=== PATIENT | male | born 1990 | race Caucasian/White ===

== ENCOUNTER 2019-04-06 08:13 | Emergency (ER) | payer SELFPAY ==
[2019-04-06] MEDS ORDERED: ASPIRIN 325 MG TAB PO ONE (08:21)
--- NOTE | 2019-04-06 08:55 | XRay Report ---
CHEST 1 VIEW INDICATION: MAIN: Chest Pain STARTING 2 HOURS AGO . COMPARISON: None FINDINGS: Support devices: None. Heart: Within normal limits. Lungs/Pleura: No acute air space or interstitial disease. Additional findings: None. IMPRESSION: 1. No acute findings. Signer Name: Jorge Powers MD Signed: 04/06/2019 8:50 AM Workstation Name: [id number]
--- NOTE | 2019-04-06 09:02 | Emergency Department Report ---
ED General Adult HPI - General Chief complaint: Chest Pain Stated complaint: PAIN IN (L) SHOULDER Time Seen by Provider: 04/06/19 08:54 Source: patient Mode of arrival: Ambulatory Limitations: No Limitations - History of Present Illness Initial comments: 28-year-old male presents to the emergency room stating he's having pain to his left shoulder that radiates down his arm. Patient states that he overdosed on crystal meth one hour prior to arrival. Patient states he feels nausea but no vomiting and feels confused. Patient denies any suicidal or homicidal ideation. Patient admits that he took a double dose of crystal meth this morning. Patient denies any falls or injuries. Patient denies any shortness of breath any sweating. -: This morning Location: left, upper extremity Radiation: extremity, distal (left arm) Quality: sharp Consistency: constant Associated Symptoms: cough. denies: diaphoresis, fever/chills, headaches, loss of appetite, nausea/vomiting, rash, shortness of breath, syncope, weakness Treatments Prior to Arrival: none - Related Data Allergies Allergy/AdvReac Type Severity Reaction Status Date / Time No Known Allergies Allergy Unverified 04/06/19 08:21 ED Review of Systems ROS: Stated complaint: PAIN IN (L) SHOULDER Other details as noted in HPI Comment: All other systems reviewed and negative ED Past Medical Hx - Past Medical History Previous Medical History?: No - Surgical History Past Surgical History?: No - Social History Smoking Status: Never Smoker Substance Use Type: Methamphetamines ED Physical Exam - General Limitations: No Limitations General appearance: alert, in no apparent distress - Head Head exam: Present: atraumatic, normocephalic - Eye Eye exam: Present: normal appearance - ENT ENT exam: Present: mucous membranes moist - Neck Neck exam: Present: normal inspection - Respiratory Respiratory exam: Present: normal lung sounds bilaterally. Absent: respiratory distress - Cardiovascular Cardiovascular Exam: Present: regular rate, normal rhythm. Absent: systolic murmur, diastolic murmur, rubs, gallop - GI/Abdominal GI/Abdominal exam: Present: soft, normal bowel sounds - Rectal Rectal exam: Present: deferred - Extremities Exam Extremities exam: Present: normal inspection - Back Exam Back exam: Present: normal inspection - Neurological Exam Neurological exam: Present: alert, oriented X3 - Psychiatric Psychiatric exam: Present: normal affect, normal mood - Skin Skin exam: Present: warm, dry, intact, normal color. Absent: rash ED Course Vital Signs 04/06/19 04/06/19 04/06/19 08:18 08:26 10:39 Temperature 98.1 F Pulse Rate 81 99 H Respiratory 16 24 16 Rate Blood Pressure 143/104 144/98 [Left] O2 Sat by Pulse 98 100 Oximetry 04/06/19 04/06/19 04/06/19 12:00 13:46 14:53 Temperature 98.4 F Pulse Rate 91 H 67 Respiratory 14 16 Rate Blood Pressure 135/91 148/95 147/97 [Left] O2 Sat by Pulse 100 Oximetry ED Medical Decision Making - Lab Data Result diagrams: 04/06/19 08:54 04/06/19 08:54 - Radiology Data Radiology results: report reviewed Patient: JAREK STONE MR#: [id number] : 1990 Acct:[id number] Age/Sex: 28 / M ADM Date: 04/06/19 Loc: ED Attending Dr: Ordering Physician: KELLY SHEIKH MD Date of Service: 04/06/19 Procedure(s): XR chest 1V ap Accession Number(s): [id number] cc: KELLY SHEIKH MD Fluoro Time In Minutes: CHEST 1 VIEW INDICATION: MAIN: Chest Pain STARTING 2 HOURS AGO . COMPARISON: None FINDINGS: Support devices: None. Heart: Within normal limits. Lungs/Pleura: No acute air space or interstitial disease. Additional findings: None. IMPRESSION: 1. No acute findings. Signer Name: Jorge Powers MD Signed: 04/06/2019 8:50 AM Workstation Name: [id number] Transcribed By: JW Dictated By: Jorge Powers MD Electronically Authenticated By: Jorge Powers MD Signed Date/Time: 04/06/1950 DD/ TD/TT: - Medical Decision Making 28-year-old male presents to the emergency room stating he's having pain to his left shoulder that radiates down his arm. Patient states that he overdosed on crystal meth one hour prior to arrival. Patient states he feels nausea but no vomiting and feels confused. Patient denies any suicidal or homicidal ideation. Patient admits that he took a double dose of crystal meth this morning. Patient denies any falls or injuries. Patient denies any shortness of breath any sweating. Toxicology and basic labs ordered. CK is within normal limits. Patient be discharged with a referral to rehabilitation. Critical care attestation.: If time is entered above; I have spent that time in minutes in the direct care of this critically ill patient, excluding procedure time. ED Disposition Clinical Impression: Amphetamine abuse, continuous Disposition: DC-01 TO HOME OR SELFCARE Is pt being admited?: No Does the pt Need Aspirin: No Condition: Stable Instructions: Methamphetamine Abuse (ED) Referrals: PRIMARY CARE, [Primary Care Provider] - 3-5 Days [facility] [Outside] - 3-5 Days [facility] [Outside] - 3-5 Days
[2019-04-06 09:15] LABS: Basophils # (Auto) 0.1 K/mm3 (0.0-0.1); Basophils % (Auto) 1.2 % (0.0-1.8); Eosinophils # (Auto) 0.1 K/mm3 (0.0-0.4); Eosinophils % (Auto) 1.4 % (0.0-4.3); Hemoglobin 16.7 gm/dl (11.8-15.2); Lymphocytes # (Auto) 1.3 K/mm3 (1.2-5.4); Lymphocytes % (Auto) 17.5 % (13.4-35.0); Mean Corpuscular HGB Conc 33 % (32-34); Mean Corpuscular Volume 91 fl (84-94); Monocytes # (Auto) 0.6 K/mm3 (0.0-0.8); Monocytes % (Auto) 7.8 % (0.0-7.3); Platelet Count 267 K/mm3 (140-440); Red Blood Count 5.52 M/mm3 (3.65-5.03); Red Cell Distribution Width 13.8 % (13.2-15.2)
[2019-04-06 10:04] LABS: BUN/Creatinine Ratio 11; Blood Urea Nitrogen 10 mg/dL (9-20); Calcium 9.1 mg/dL (8.4-10.2); Hemolysis Index 38
[2019-04-06] MEDS ORDERED: SODIUM CHLORIDE 0.9% 1000 ML 1,000 ML IV ONE (12:53)
[2019-04-06 15:09] VITALS: BP 147/97
[2019-04-06 15:13] LABS: Bilirubin,Urine NEG (Negative); Blood,Urine NEG (Negative); Color,Urine Yellow (Yellow); Mucus,Urine FEW /HPF; Protein,Urine <15 mg/dL mg/dL (Negative); Urobilinogen,Urine < 2.0 mg/dL (<2.0); WBC,Urine < 1.0 /HPF (0.0-6.0)
[2019-04-06 15:22] LABS: Benzodiazepines Screen,Urine PRESUMPTIVE NEGATIVE; Cannabinoid Screen,Urine PRESUMPTIVE NEGATIVE; Cocaine Screen,Urine PRESUMPTIVE NEGATIVE; Methadone Screen,Urine PRESUMPTIVE NEGATIVE; Opiate Screen,Urine PRESUMPTIVE NEGATIVE
[2019-04-06 15:37] LABS: Amphetamine Screen,Urine PRESUMPTIVE POSITIVE
== END 2019-04-06 17:55 | disposition home or self-care (01) ==
LOC: ED 08:13
DX: M25.512 Pain in left shoulder (principal); R11.0 Nausea; F15.10 Other stimulant abuse, uncomplicated; R41.0 Disorientation, unspecified
CPT/HCPCS: 36415; 71045; 80048; 80307; 81001; 82550; 84484; 85025; 93005; 93010; 96360; 99284; J7030; 80320; G0480